=== PATIENT | female | born 1950 | race Caucasian/White ===

== ENCOUNTER 2017-09-05 01:54 | Emergency (ER) | payer MEDICARE, OTHER ==
[2017-09-05] MEDS ORDERED: Ibuprofen 800 MG TAB ONE (02:32)
--- NOTE | 2017-09-05 08:56 | RAD ---
RIGHT WRIST 3 VIEWS: Date: 09/05/17 HISTORY: Injury. Right wrist pain. FINDINGS/IMPRESSION: No acute fracture or dislocation is identified. If symptoms do not improve, follow-up exam should be obtained in 7-10 days. POS: [facility]
== END 2017-09-05 02:36 | disposition home or self-care (01) ==
LOC: BURERS 01:54
DX: S63.501A Unspecified sprain of right wrist, initial encounter (principal); I48.91 Unspecified atrial fibrillation; E03.9 Hypothyroidism, unspecified; E78.5 Hyperlipidemia, unspecified; I10 Essential (primary) hypertension; W18.30XA Fall on same level, unspecified, initial encounter

== ENCOUNTER 2019-04-22 10:10 | Outpatient (CLI) | payer MEDICARE | END 2019-04-22 10:11 | disposition home or self-care (01) | LOC: BUREKG 10:10 | PROVIDERS: ATTEND Physician Assistant | DX: I48.20 Chronic atrial fibrillation, unspecified (principal) | CPT/HCPCS: 93005; 93010 ==

== ENCOUNTER 2019-10-14 19:31 | Emergency (ER) | payer MEDICARE ==
--- NOTE | 2019-10-14 20:52 | RAD ---
RIGHT WRIST 3 VIEWS: Date: 10/14/2019 An impacted fracture of the distal radius is present with dorsal angulation of the distal fragment. T here is also a fracture at the base of the ulnar styloid process. The carpal bones show a normal rela tionship. The metacarpals appear intact. IMPRESSION: Colles' fracture. POS: HOME
== END 2019-10-14 20:35 | disposition home or self-care (01) ==
LOC: BURERS 19:31
DX: S52.531A Colles' fracture of right radius, initial encounter for closed fracture (principal); S52.611A Displaced fracture of right ulna styloid process, initial encounter for closed fracture; I48.91 Unspecified atrial fibrillation; E03.9 Hypothyroidism, unspecified; E78.5 Hyperlipidemia, unspecified; I10 Essential (primary) hypertension; F17.210 Nicotine dependence, cigarettes, uncomplicated; Z79.899 Other long term (current) drug therapy; Z79.01 Long term (current) use of anticoagulants; Z79.84 Long term (current) use of oral hypoglycemic drugs; W01.0XXA Fall on same level from slipping, tripping and stumbling without subsequent striking against object, initial encounter
CPT/HCPCS: 29125

== ENCOUNTER → 2019-12-14 13:56 | Emergency (ER) | payer MEDICARE ==
[~2019-12-14 13:56] MED LIST: EPINEPHrine 1 MG/10 ML Abboject SYRINGE ONE; EPINEPHrine 1 MG/ML AMP ONE; Famotidine In NaCl 20 mg/50 ml Premix Bag ONE; Fentanyl 100 MCG/2 ML VIAL ONE; Ketamine 50 MG/ML (10ML VIAL) ONE; Midazolam HCl 5 mg/ml Vial ONE; Propofol 1,000 MG/100 ML VIAL IV ONE; diphenhydrAMINE 50 MG/ML VIAL ONE; methylPREDNISolone Sod Succ/PF 125 MG/2 ML VIAL ONE
[2019-12-14 14:45] LABS: #Basophils 0.2 thou/uL (0.0-0.2); #Eosinphils 0.2 thou/uL (0.0-0.7); #Lymphocytes 1.3 thou/uL (1.20-3.40); #Monocytes 0.8 thou/uL (0.11-0.59); #Neutrophils 10.2 thou/uL (1.40-6.50); %Basophils 1.4 % (0.0-1.0); %Eosinophils 1.3 % (0.0-10.0); %Lymphocytes 10.6 % (21.0-51.0); %Monocytes 6.2 % (0.0-10.0); %Neutrophils 80.5 % (42.0-75.0); Hemoglobin 12.9 g/dL (12.0-16.0); Mean Corpuscular HGB CONC 30.8 g/dL (32.0-36.0); Mean Corpuscular Hemoglobin 30.8 pg (27.0-31.0); Mean Corpuscular Volume 99.9 fL (78.0-98.0); Mean Platelet Volume 11.6 fL (7.4-10.4); Platelet Count 181 thou/uL (130-400); RBC Distribution Width 14.9 % (11.5-14.5); Red Blood Cell (RBC) Count 4.18 mill/uL (4.20-5.40); White Blood Cell (WBC) Count 12.6 thou/uL (4.8-10.8)
[2019-12-14 14:48] LABS: INR-International Normal Ratio 1.1; PTT 33.1 sec (22.9-36.1); Prothrombin Time 14.8 sec (12.0-14.7)
[2019-12-14 14:58] LABS: ALT (SGPT) 12 U/L (8-55); AST (SGOT) 19 U/L (5-34); Albumin 4.3 g/dL (3.4-4.8); Alkaline Phosphatase 72 U/L (40-110); Anion Gap 18 mmol/L (10-20); BUN (Urea Nitrogen) 11 mg/dL (9.8-20.1); Bilirubin, Total 0.9 mg/dL (0.2-1.2); Calc. Creatinine Clearance 0 mL/min (70-130); Calcium 8.9 mg/dL (7.8-10.44); Carbon Dioxide 21 mmol/L (23-31); Chloride 99 mmol/L (98-107); Estimated GFR-MDRD 67; Globulin 2.4 g/dL (2.4-3.5); Glucose 105 mg/dL (80-115); Potassium 3.8 mmol/L (3.5-5.1); Protein, Total 6.7 g/dL (6.0-8.3); Sodium 134 mmol/L (136-145)
--- NOTE | 2019-12-15 07:19 | RAD ---
PORTABLE CHEST: Date: 12/14/2019 An AP portable film at 1510 hours is compared with the 03/14/2005 study. The patient has been intubated in the interval with the tip of the endotracheal tube 1.0 cm or two ab ove the hector. A NG tube descends appropriately into the stomach. Its tip is probably in the fundus. The heart is enlarged, moreso than before. There is some diffuse congestion of vessels with mild charlee a. I do not see large pleural effusions, but small ones could easily be present. It is difficult to f ully assess the left lung base. I cannot rule in or out infiltrate or atelectasis here. IMPRESSION: 1. Cardiomegaly with congestive changes. 2. Adequate positioning of endotracheal and NG tubes. POS: HOME
== END | disposition short-term general hospital (02) ==
LOC: BURERS 13:56
DX: T78.3XXA Angioneurotic edema, initial encounter (principal); R44.1 Visual hallucinations; T46.4X5A Adverse effect of angiotensin-converting-enzyme inhibitors, initial encounter
CPT/HCPCS: 31500; 51702; 71045; 80053; 84443; 85025; 85610; 85730; 96365; 96375; 96376; 99292; J0171; J1200; J2250; J2704; J2930; J3010